=== PATIENT | male | born 1995 | race Caucasian/White ===

== ENCOUNTER 2016-08-17 12:26 | Inpatient (IN) | payer OTHER ==
[~2016-08-17] VITALS: Ht 180.3 cm; Wt 100.0 kg
[~2016-08-17 12:26] MED LIST changes: -ACETAMINOPHEN 1000 MG/100 ML VIAL IV ONE; -ACETAMINOPHEN 325MG/HYDROcodone 7.5MG/15ML UDC PO PRN; -CHLORHEXIDINE GLUCONATE 2 % 1 PACK (2 CLOTHS) TOPICAL PRN; -DO NOT ADM ANY ANTICOAGULANT DRUGS PRN; -INSULIN HUMAN REGULAR 1,000 UNITS/10 ML VIAL SQ PRN; +LACTATED RINGER'S 1000 ML INJ 1,000 ML IV ONE; -LACTATED RINGER'S 1000 ML IV PRN; -METOPROLOL TARTRATE 25 MG TAB PO PRN; -MORPHINE SULFATE 4 MG/ML INJ IV PRN; -ONDANSETRON HCL 4 MG/2 ML VIAL IV PUSH PRN; -POVIDONE IODINE 5% (ANTISEPSIS KIT) 4 APPLICATIONS EACH NARE PRN; -SODIUM CHLORID 0.9% 500 ML IV PRN; -ceFAZolin INJ 1,000 MG VIAL ONE; -fentaNYL CITRATE 250 MCG/5 ML AMP ONE
[2016-08-17 12:27] VITALS: BP 145/84; PULSE 98; RESP 20; TEMP 97.6; O2SAT 100
--- NOTE | 2016-08-17 12:43 | PD ---
Physical Exam Time Seen by Provider: 12:42 Narrative Pt presents to ED for post tonsillectomy bleeding s/p surgery this morning by Dr. Lara. The patient is Dr. Boothe's son. VSS. Patient immediately bedded to C pod. Data Data Last Documented VS Vital Signs Date Time Temp Pulse Resp B/P Pulse Ox O2 Delivery O2 Flow Rate FiO2 08/17/16 12:27 97.6 98 20 145/84 100 Room Air MDM Supervised Visit with SHON: No Scripts No Active Prescriptions or Reported Meds Kelley Glasgow Aug 17, 2016 12:43
[2016-08-17 12:50] VITALS: BP 143/86; PULSE 103; RESP 14; TEMP 99.2; O2SAT 97
--- NOTE | 2016-08-17 13:01 | PD ---
HPI Chief Complaint: ENT Complaint Time Seen by Provider: 12:49 Travel History International Travel<30 days: No Contact w/Intl Traveler<30days: No Traveled to known affect area: No History of Present Illness HPI 20yo M here with bleeding after tonsillectomy by Dr. Irizarry today. Pt states it was fine after the procedure and then he had a slurpie and after that started to bleed. Pt denies any other complaints including chest pain, sob, n/v , abdominal pain, focal weakness or numbness. PFSH Past Medical History Cancer: No Cardiovascular Problems: No Diabetes: No Endocrine: No Genitourinary: No Hepatitis: No Hiatal Hernia: No Immune Disorder: No Musculoskeletal: No Neurologic: No Psychiatric: No Reproductive: No Respiratory: No Thyroid Disease: No Past Surgical History AICD: No Body Medical Devices: NONE Joint Replacement: No Pacemaker: No Tonsillectomy: Yes Social History Alcohol Use: No Tobacco Use: No Substance Use: No Allergies-Medications (Allergen,Severity, Reaction): Coded Allergies: No Known Allergies (Unverified , 08/17/16) Reported Meds & Prescriptions Reported Meds & Active Scripts Active No Active Prescriptions or Reported Medications Review of Systems Except as stated in HPI: all other systems reviewed are Neg Physical Exam Narrative GENERAL: 20yo M in mild distress. SKIN: Focused skin assessment warm/dry. HEAD: Atraumatic. Normocephalic. EYES: Pupils equal and round. No scleral icterus. No injection or drainage. ENT: Throat: +clot in left tonsil. +Active bleeding. NECK: Trachea midline. No JVD. CARDIOVASCULAR: Regular rate and rhythm. No murmur appreciated. RESPIRATORY: No accessory muscle use. Clear to auscultation. Breath sounds equal bilaterally. GASTROINTESTINAL: Abdomen soft, non-tender, nondistended. MUSCULOSKELETAL: No obvious deformities. No clubbing. No cyanosis. No edema. NEUROLOGICAL: Awake and alert. No obvious cranial nerve deficits. Motor grossly within normal limits. Normal speech. PSYCHIATRIC: Appropriate mood and affect; insight and judgment normal. Data Data Last Documented VS Vital Signs Date Time Temp Pulse Resp B/P Pulse Ox O2 Delivery O2 Flow Rate FiO2 08/17/16 12:50 99.2 103 14 143/86 97 Room Air MDM Medical Decision Making Medical Screen Exam Complete: Yes Emergency Medical Condition: Yes Differential Diagnosis Post op complications Narrative Course 20yo M with bleeding after tonsillectomy today. Dr. Lara who is the ENT who performed the surgery is here in the ED and states he will take pt back to the OR now. Pt is to be admitted under him. Diagnosis Primary Impression: Post-tonsillectomy hemorrhage Admitting Information Admitting Physician Requests: Admit Scripts No Active Prescriptions or Reported Meds Latasha Mccauley DO Aug 17, 2016 13:01
--- NOTE | 2016-08-17 13:10 | MH ---
cc: ADRIA OROZCO M.D. Corrected: 08/22/2016 DATE OF ADMISSION: 08/17/2016 CHIEF COMPLAINT Post-tonsillectomy bleed. HISTORY OF PRESENT ILLNESS Lee had a tonsillectomy that went uneventfully this morning. Bilateral tonsils were removed approximately three hours ago. He had been followed postoperatively, had gone home and had no initial incidence. He then developed brisk bleeding, thought to be first on the right side and this did not clear with gargling with cold water. He presented to our office where he was evaluated by the ENT physician there and then brought to my attention. I met him here in the emergency room where he shows post-tonsillectomy hemorrhage. His airway is stable. He appears to have more clot on the left side. The plan is to return to the OR for control of post-tonsillectomy hemorrhage. PAST MEDICAL HISTORY Significant for tonsillitis and tonsillectomy earlier today. PHYSICAL EXAMINATION GENERAL: A well-developed male in no distress. HEENT: The facial exam is symmetric. The external ears are clear. The oral cavity does show evidence of clot with minimal active bleed. At this point it is more on the left side. The airway is stable. NECK: The trachea is midline. The neck shows no masses. CHEST: Clear to auscultation. HEART: Regular rate. ABDOMEN: Soft. EXTREMITIES: No lesion. NEUROLOGIC: Nonfocal. ASSESSMENT AND PLAN Post-tonsillectomy hemorrhage. The patient had gone home. He had a Slurpee to eat afterwards he reports, otherwise no solid food. He will need to return to the operating room for control of post-tonsillectomy hemorrhage. MD LAURIE Zheng/MAVIS /12:53 PM /12:59 PM MTDLinda
[2016-08-17] MEDS ORDERED: fentaNYL CITRATE 250 MCG/5 ML AMP ONE (13:15)
--- NOTE | 2016-08-17 14:39 | MP ---
cc: ADRIA OROZCO M.D. Corrected: 08/22/2016 DATE OF SURGERY: 08/17/2016 INDICATION The patient had a tonsillectomy earlier today. He developed bleeding about 2-3 hours after surgery. It was brisk, he had a clot and it was elected to bring him to the operating room for evaluation and control of post-tonsillectomy hemorrhage. PREOPERATIVE DIAGNOSIS Post-tonsillectomy hemorrhage. POSTOPERATIVE DIAGNOSIS Post-tonsillectomy hemorrhage. PROCEDURE Control of postoperative tonsil hemorrhage. SUMMARY The patient was brought into the operating room and placed in a supine position, successfully placed under general anesthesia and prepared in the usual fashion for this procedure. The oral cavity was exposed. The patient had a clot in the posterior pharynx. This was all suctioned clear. The right side was well-healed. There was some edema at the right palate and uvula but no evidence of hematoma and no active bleeding. His bleeding came from the midportion of the tonsil but on the left side it was a steady ooze at this point and not pumping. Pressure was held with a tonsil sponge for 60 seconds and then with suction cautery it was controlled. At that point all bleeding had been controlled. I used a suction catheter and palpated both sides of the tonsils briskly and there was no evidence of bleeding, hemostasis had been obtained. He tolerated the procedure well, was awakened, extubated and taken to Recovery in stable condition. MD LAURIE Zheng/MAVIS /2:04 PM /2:28 PM MTDD
[2016-08-17 15:30] VITALS: BP 156/69; PULSE 85; RESP 18; TEMP 97.9; O2SAT 95
== END 2016-08-17 16:00 | disposition home or self-care (01) | DRG 909 ==
LOC: HOR 12:26 → NEDA 13:01 → HPAC 14:27
PROVIDERS: ADMIT Specialist; ATTEND Specialist
PROC: 0W33XZZ Control Bleeding in Oral Cavity and Throat, External Approach (ICD-10-PCS; principal; 2016-08-17 13:14)
DX: J95.830 Postprocedural hemorrhage of a respiratory system organ or structure following a respiratory system procedure (principal); Y83.8 Other surgical procedures as the cause of abnormal reaction of the patient, or of later complication, without mention of misadventure at the time of the procedure
CPT/HCPCS: J2405; J3010; J7120

== ENCOUNTER → 2016-08-17 | Day surgery (SDC) | payer OTHER ==
--- NOTE | 2016-08-15 09:04 | MH ---
cc: ADRIA OROZCO M.D. DATE OF ADMISSION: 08/17/2016 DATE OF : 1995 CHIEF COMPLAINT Tonsillitis. HISTORY OF PRESENT ILLNESS A 20-year-old male with chronic recurrent tonsillitis. Lee has had multiple infections and has been on antibiotic therapy nearly every month for the past year. He has hypertrophy and obstruction and is causing sleep disordered breathing. He presents for tonsillectomy. PAST MEDICAL HISTORY Otherwise noncontributory. ALLERGIES No known drug allergies. PHYSICAL EXAMINATION GENERAL: A well-developed, well-nourished male in no apparent distress. HEENT: Normocephalic, atraumatic. Extraocular motions intact. External ear canals clear. Lips, oral mucosa and oropharynx show no lesion. Tonsils are 3+ with erythema. Nasal exam shows no lesion. NECK: No masses. CHEST: Clear to auscultation. HEART: Regular rate. ABDOMEN: Soft. EXTREMITIES: No lesion. NEUROLOGIC: Nonfocal. ASSESSMENT This is a 20-year-old male with chronic recurrent tonsillitis and tonsil hypertrophy who has not responded to medical therapy. PLAN Tonsillectomy. The risks and benefits were discussed with the patient and his parents. The risks include not are not limited to those of anesthesia, bleeding, unfavorable scarring, velopharyngeal insufficiency, dehydration, depression, abscess, voice change and bleeding. The patient and his family state they understand and accept the risks of this procedure. MD LAURIE Zheng/MAVIS /7:50 AM /9:00 AM
[~2016-08-17] VITALS: Ht 180.3 cm; Wt 203.3 kg
[~2016-08-17] MED LIST: ACETAMINOPHEN 1000 MG/100 ML VIAL IV ONE; ACETAMINOPHEN 325MG/HYDROcodone 7.5MG/15ML UDC PO PRN; CHLORHEXIDINE GLUCONATE 2 % 1 PACK (2 CLOTHS) TOPICAL PRN; DO NOT ADM ANY ANTICOAGULANT DRUGS PRN; INSULIN HUMAN REGULAR 1,000 UNITS/10 ML VIAL SQ PRN; LACTATED RINGER'S 1000 ML IV PRN; METOPROLOL TARTRATE 25 MG TAB PO PRN; MORPHINE SULFATE 4 MG/ML INJ IV PRN; ONDANSETRON HCL 4 MG/2 ML VIAL IV PUSH ONE; ONDANSETRON HCL 4 MG/2 ML VIAL IV PUSH PRN; POVIDONE IODINE 5% (ANTISEPSIS KIT) 4 APPLICATIONS EACH NARE PRN; PROPOFOL 200 MG/20 ML AMP IV ONE; SODIUM CHLORID 0.9% 500 ML IV PRN; ceFAZolin INJ 1,000 MG VIAL ONE; fentaNYL CITRATE 250 MCG/5 ML AMP ONE
[2016-08-17 07:30] VITALS: BP 128/81; PULSE 75; RESP 16; TEMP 98; O2SAT 99
[2016-08-17 07:47] LABS: AUTOMATED NEUTROPHIL # 4.7 TH/MM3 (1.8-7.7); BASOPHIL % 0.5 % (0.0-2.0); EOSINOPHIL # 0.1 TH/MM3 (0-0.4); HEMATOCRIT 44.9 % (39.0-51.0); HEMO FLAGS DIFF FINAL; LYMPH % 25.3 % (9.0-44.0); LYMPHOCYTE # 1.9 TH/MM3 (1.0-4.8); MEAN CELL VOLUME 89.9 FL (80.0-100.0); MEAN CORPUSCULAR HEMOGLOBIN 30.2 PG (27.0-34.0); MEAN CORPUSCULAR HGB CONC 33.6 % (32.0-36.0); MONO % 7.8 % (0.0-8.0); NEUT % 64.4 % (16.0-70.0); PLATELET COUNT 187 TH/MM3 (150-450); RED CELL DISTRIBUTION WIDTH 12.7 % (11.6-17.2); WHITE BLOOD COUNT 7.4 TH/MM3 (4.0-11.0)
--- NOTE | 2016-08-17 09:08 | MP ---
cc: ADRIA OROZCO M.D. DATE OF SURGERY August 17, 2016 CHIEF COMPLAINT Recurrent tonsillitis, tonsillar hypertrophy PREOPERATIVE DIAGNOSES 1. Chronic recurrent tonsillitis. 2. Tonsillar hypertrophy. POSTOPERATIVE DIAGNOSES 1. Chronic recurrent tonsillitis. 2. Tonsillar hypertrophy. PROCEDURE Tonsillectomy. SUMMARY The patient was brought to the operating room, placed in supine position, successfully placed under general anesthesia and prepped in the usual fashion for this procedure. The oral cavity was exposed with retractor. No submucous cleft. The right tonsil was removed with coblation technique from superior to inferior. The left tonsil was removed in a similar fashion. Both tonsil beds were inspected, hemostasis obtained by suction cautery. The patient was suctioned, retractors removed. He was awakened, extubated and taken to Recovery in stable condition. MD LAURIE Zheng/GORDY /8:58 AM /9:02 AM
[2016-08-17 10:40] VITALS: BP 134/85; PULSE 66; RESP 18; TEMP 97.4; O2SAT 99
== END | disposition home or self-care (01) ==
LOC: HSDC 07:06
PROVIDERS: ATTEND Specialist
DX: J35.01 Chronic tonsillitis (principal); Z01.818 Encounter for other preprocedural examination
CPT/HCPCS: 00170; 42826; 85025; 88304; J0131; J0690; J2405; J3010